=== PATIENT | female | born 1935 | race Caucasian/White ===

== ENCOUNTER 2022-11-09 22:29 | Emergency (ER) | payer OTHER ==
[2022-11-09 22:50] VITALS: BP 168/98; PULSE 82; RESP 18; TEMP 98; BMI 28.3
[2022-11-10 01:50] LABS: BASO % 0.7 % (0-2.0); EOS % 0.5 % (0-4.5); HEMATOCRIT 38.2 % (32.4-45.2); MCH 32.6 pg (25.7-33.7); MCHC 34.1 g/dl (32.0-36.0); MEAN CELL VOLUME 95.6 fl (80-96); MEAN PLT VOLUME 9.9 fl (7.5-11.1); MONO % 7.9 % (3.8-10.2); NEUT % 78.9 % (42.8-82.8); PLATELET COUNT 230 10^3/uL (134-434); RDW 13.7 % (11.6-15.6); WHITE BLOOD COUNT 10.5 K/mm3 (4.0-10.0)
[2022-11-10 01:51] LABS: EPI CELLS 3 /uL (0-25.1); HYALINE CASTS 0 /uL (0-3.1); URINE APPEARANCE CLEAR; URINE BACTERIA >9,000 /uL (0-1359); URINE BILIRUBIN NEGATIVE (NEGATIVE); URINE COLOR YELLOW; URINE GLUCOSE (UA) NEGATIVE (NEGATIVE); URINE KETONE NEGATIVE (NEGATIVE); URINE LEUK ESTERASE 2+ (NEGATIVE); URINE NITRITE NEGATIVE (NEGATIVE); URINE PROTEIN NEGATIVE (NEGATIVE); URINE RBC 13 /uL (0-23.9); URINE WBC 137 /uL (0-25.8)
[2022-11-10] MEDS ORDERED: CEPHALEXIN MONOHYDRATE 500 MG CAPSULE (UD) PO ONE (02:03)
[2022-11-10 02:09] LABS: POTASSIUM 3.5 mmol/L (3.5-5.1)
[2022-11-10 02:11] LABS: CALCIUM 8.8 mg/dL (8.5-10.1)
[2022-11-10 02:12] LABS: BLOOD UREA NITROGEN 20.5 mg/dL (7-18); MAGNESIUM 1.7 mg/dL (1.8-2.4)
[2022-11-10 02:15] LABS: CREATININE 0.7 mg/dL (0.55-1.3)
[2022-11-10 02:16] LABS: TOT PROT 7.4 g/dl (6.4-8.2)
[2022-11-10] MEDS ORDERED: MAGNESIUM OXIDE 400 MG TABLET (FP) PO ONE (02:16)
[2022-11-10 02:17] LABS: BILIRUBIN,TOTAL 0.3 mg/dL (0.2-1)
[2022-11-10] MEDS ORDERED: CEPHALEXIN MONOHYDRATE 500 MG CAPSULE (UD) ONE (02:29)
[2022-11-10] MEDS ORDERED: MAGNESIUM OXIDE 400 MG TABLET (FP) ONE (02:29)
== END 2022-11-10 03:10 | disposition home or self-care (01) ==
LOC: JER 22:29
DX: R42 Dizziness and giddiness (principal); N39.0 Urinary tract infection, site not specified
CPT/HCPCS: 36415; 70450-TC; 80053; 81003; 83735; 84484; 85025; 87086; 87186; 93005; 93010; 99285-25